=== PATIENT | female | born 1965 | race Caucasian/White ===

== ENCOUNTER → 2019-02-11 | Outpatient (CLI) | payer BC ==
[2019-02-11] MEDS: IOHEXOL 300MG/ML 150 ML BTL (10:52)
[2019-02-11] MEDS: SOD CHLORIDE 0.9% 100 ML (10:52)
== END | disposition home or self-care (01) ==
LOC: C/S 09:56
DX: N30.91 Cystitis, unspecified with hematuria (principal)
CPT/HCPCS: 74178

== ENCOUNTER 2019-04-09 09:04 | Day surgery (SDC) | payer BC ==
[2019-04-09] MEDS ORDERED: PROPOFOL 20 ML ×2 (10:47)
== END 2019-04-09 18:05 | disposition home or self-care (01) ==
LOC: GIL 09:04
DX: K64.8 Other hemorrhoids (principal); D12.8 Benign neoplasm of rectum; K21.0 Gastro-esophageal reflux disease with esophagitis; E11.9 Type 2 diabetes mellitus without complications; Z79.82 Long term (current) use of aspirin; Z79.84 Long term (current) use of oral hypoglycemic drugs
CPT/HCPCS: 43239; 82962; 88305